=== PATIENT | female | born 1980 | race Caucasian/White ===

== ENCOUNTER 2019-01-08 15:39 | Outpatient (CLI) | payer OTHER ==
--- NOTE | 2019-01-08 17:00 | RAD ---
Right wrist 3 views: 01/08/2019 COMPARISON: None HISTORY: Injury, trauma, pain FINDINGS: No fracture or dislocation. No radiopaque foreign body or subcutaneous gas. If symptoms per sist, follow-up in 7-10 days with dedicated scaphoid views advised. IMPRESSION: No acute findings.
== END 2019-01-08 15:40 | disposition home or self-care (01) ==
LOC: SCSRAD 15:39
PROVIDERS: ATTEND Family Medicine
DX: S69.91XA Unspecified injury of right wrist, hand and finger(s), initial encounter (principal)

== ENCOUNTER 2019-11-09 14:37 | Outpatient (CLI) | payer OTHER ==
--- NOTE | 2019-11-09 15:58 | MRI ---
MRI RIGHT KNEE: 11/09/19 PROVIDED CLINICAL HISTORY: Right knee pain. FINDINGS: The anterior cruciate ligament, posterior cruciate ligament, medial collateral ligament and lateral c ollateral ligamentous complex demonstrate an intact MR appearance. There is mild fluid signal intensi ty deep to the distal iliotibial band. There is a conspicuously discoid morphology to the lateral meniscus. There is no definite grade 3 sig nal apparent. There is a globular focus of diminished T1 and T2 signal intensity immediately superfic ial to the body of the lateral meniscus measuring about 1.2 cm in craniocaudal dimension x about 6 mm in transverse dimension x about 1.6 cm in AP dimension. This is inseparable from the lateral margin of the body of the lateral meniscus. The medial meniscus appears normal. There is signal inhomogeneity involving the median ridge and lateral facet of the patella with low gr jerald fissuring. Articular cartilage appears otherwise preserved. There is a mild knee joint effusion. No focal concerning regional marrow or muscular signal abnormality apparent. There is lateral patellar tilt and lateral tracking of the patella noted. IMPRESSION: 1. Conspicuously discoid lateral meniscus. Globular structure at the lateral margin of the body of the lateral meniscus may reflect a complicated parameniscal cyst. This does not appear to represen t displaced meniscal tissue. 2. Patellar chondrosis. 3. Mild knee joint effusion. 4. Fluid signal intensity deep to the distal IT band, which can be seen in IT band friction synd ruy. POS: EMMY
== END 2019-11-09 14:38 | disposition home or self-care (01) ==
LOC: SCSMRI 14:37
PROVIDERS: ATTEND Orthopaedic Surgery
DX: S83.281A Other tear of lateral meniscus, current injury, right knee, initial encounter (principal); M25.461 Effusion, right knee; M22.41 Chondromalacia patellae, right knee; R93.7 Abnormal findings on diagnostic imaging of other parts of musculoskeletal system; M23.300 Other meniscus derangements, unspecified lateral meniscus, right knee

== ENCOUNTER 2019-11-18 05:39 | Outpatient (CLI) | payer OTHER ==
[2019-11-18 16:34] LABS: #Eosinphils 0.1 thou/uL (0.0-0.7); #Lymphocytes 1.9 thou/uL (1.20-3.40); #Monocytes 0.3 thou/uL (0.11-0.59); %Basophils 0.2 % (0.0-1.0); %Eosinophils 0.8 % (0.0-10.0); %Lymphocytes 23.3 % (21.0-51.0); %Monocytes 3.8 % (0.0-10.0); Hemoglobin 13.1 g/dL (12.0-16.0); Mean Corpuscular HGB CONC 33.9 g/dL (32.0-36.0); Mean Corpuscular Hemoglobin 32.4 pg (27.0-31.0); Mean Corpuscular Volume 95.6 fL (78.0-98.0); Mean Platelet Volume 7.8 fL (7.4-10.4); Platelet Count 265 thou/uL (130-400); RBC Distribution Width 10.5 % (11.5-14.5); Red Blood Cell (RBC) Count 4.04 mill/uL (4.20-5.40); White Blood Cell (WBC) Count 8.3 thou/uL (4.8-10.8)
[2019-11-19 14:41] LABS: SARS-CoV-2 MS2 Positive; SARS-CoV-2 N Gene Negative; SARS-CoV-2 S Gene Negative; SARS-CoV-2 by NAA Not Detected (NotDetected); SARS-CoV-2 orf1ab Negative
== END 2019-11-18 05:40 | disposition home or self-care (01) ==
LOC: LABBT 05:39
PROVIDERS: ATTEND Orthopaedic Surgery
DX: Z01.812 Encounter for preprocedural laboratory examination (principal); Z11.59 Encounter for screening for other viral diseases; S83.281A Other tear of lateral meniscus, current injury, right knee, initial encounter
CPT/HCPCS: 84702; 85025; 87635; U0003

== ENCOUNTER 2019-11-23 06:58 | Day surgery (SDC) | payer OTHER ==
[2019-11-22 11:18] VITALS: BMI 26.6
[2019-11-23] MEDS ORDERED: Midazolam HCl 2 mg/2 ml Vial ONE ×2 (07:59→08:31)
[2019-11-23] MEDS ORDERED: Fentanyl 100 MCG/2 ML VIAL ONE ×2 (07:59→08:31)
[2019-11-23] MEDS ORDERED: Ondansetron PF 4 MG/2 ML Vial ONE (10:21)
[2019-11-23] MEDS ORDERED: Dexamethasone 20 MG/5 ML VIAL ONE (10:21)
[2019-11-23] MEDS ORDERED: Bupivacaine PF 0.5% 30 ML VIAL ONE (10:21)
[2019-11-23] MEDS ORDERED: PROPOFOL 200 MG/20 ML VIAL ONE (10:21)
[2019-11-23] MEDS ORDERED: PHENYLEPHRINE-NS 100 MCG/ML 10 ML SYRINGE ONE (10:21)
[2019-11-23] MEDS ORDERED: Lidocaine 2% w/Epinephrine 1:200K 20 ML VIAL ONE (10:21)
[2019-11-23] MEDS ORDERED: Morphine 4 MG/ML VIAL ONE (11:14)
[2019-11-23] MEDS ORDERED: HYDROcodone/Acetaminophen 5/325 mg Tablet ONE (12:31)
--- NOTE | 2019-11-24 09:14 | OP ---
DATE OF PROCEDURE: 11/23/2019 PREOPERATIVE DIAGNOSIS: Right knee lateral meniscus tear with parameniscal cyst. POSTOPERATIVE DIAGNOSES: 1. Right knee with some areas of grade 2 chondral wear approaching grade 3 in the medial femoral condyle with associated deposits of crystals in the medial compartment noted on the medial femoral condyle cartilage as well as medial meniscus itself. 2. 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 This cyst was noted to contain a toothpaste-like crystalline material inside. PROCEDURES PERFORMED: 1. Right knee arthroscopy with debridement and shaving. 2. Open removal of parameniscal cyst. ANESTHESIA: The patient did have a general anesthetic. She did have local knee block. DISPOSITION: She did go to recovery room in stable condition. COMPLICATIONS: There were no complications. SPECIMEN: We did send some fluid to the lab for evaluation for crystals. We also sent the cyst for further pathologic evaluation. INDICATIONS: This 39-year-old active female comes in complaining of pain and catching about a week and a half ago. She has no known history and was found on MRI scan to have a discoid meniscus that was felt to be torn. It does appear that the whole meniscus has some intrasubstance degeneration and a parameniscal cyst. At this time, she opted to have surgery. DESCRIPTION OF PROCEDURE: After all appropriate consent forms were explained and signed, she was taken back to the operating room and at this time was given general anesthetic. Once the level of anesthesia was appropriate, tourniquet was placed on the right thigh. Leg was placed in arthroscopic leg wagner. The limb was then prepped and draped in standard surgical fashion. The limb was exsanguinated and tourniquet was taken to 300 mmHg. Inferolateral portal was established and scope was placed into the knee joint. A needle localization technique was then used to make a medial working portal. Diagnostic arthroscopy commenced in the notch. The ACL and PCL were probed, found to be intact. The medial femoral condyle was found to have some small area of grade 2 approaching grade 3 cartilage loss with some unstable chondral flaps, but what was more interesting was that there was some crystals embedded in these areas. The tibial plateau was in good condition. The medial meniscus was found to be intact; however, the meniscus itself was found to have crystals in the substance of the meniscal tissue. The lateral compartment was then evaluated. The femoral cartilage was in good condition. The entire tibial plateau was covered by discoid lateral meniscus. We probed this thoroughly throughout and we were unable to find a tear on either the superior or inferior surface of the meniscus itself. Therefore, we did not do anything to the meniscus knowing that the entire intrasubstance of this was degenerative for fear that the entire meniscus would just fall apart if we started to try and saucerize this discoid meniscus. Patellofemoral joint was found to have some minor wear. No loose bodies were noted in the gutters. At this time, we removed the scope and drained the knee. We made a small lateral incision midway between the fibular head and Gerdy's tubercle and went down through skin only. Bovie was used to coagulate any brisk venous bleeding. We then were able to palpate a small cystic structure lying underneath the IT band and centered our IT band incision directly over top of this. At this time, we then used knee flexion-extension as well as [employer] retractors to gain access to the cystic structure. This was rubbery in nature and had a yellow discoloration and as we tried to dissect it out, we did get into the cyst and it was noted to have a liquidy, toothpaste type consistency, which would go along with crystal deposition. The cyst was removed in its entirety and sent to pathology for formal evaluation. We did have a needle available and took some of the fluid with some of the crystals and sent that separately for crystal evaluation. We then thoroughly irrigated and dried the knee. In removing the cyst, we did remove some of the coronary ligaments and at this time, we did put the camera back into the knee joint through the portal, turned the flow on and noted that flow egressed from this area. Therefore, we would have to reconstruct the coronary ligaments. We then went ahead and placed two 3.5 mm Titanium anchors in the subchondral bone being careful not to penetrate into the articular surface. The single stitch was then used to grab hold of our lateral edge of our meniscus and tacked this down to the tibia. At this time, we then again irrigated and dried. We closed our IT band followed by some 2-0 Vicryl and stitches to close our skin. Portals were closed with simple nylon stitch as well. Bulky sterile dressing was applied as well as a knee immobilizer. The patient was then awakened, taken to the recovery room in stable condition. All counts were correct at the end of the case. She did receive preoperative IV antibiotics. Job ID: [id number]
== END 2019-11-23 12:50 | disposition home or self-care (01) ==
LOC: SDC 06:58
PROVIDERS: ATTEND Orthopaedic Surgery
PROC: 0SBC0ZZ Excision of Right Knee Joint, Open Approach (ICD-10-PCS; principal; 2019-11-23)
PROC: 0SJC4ZZ Inspection of Right Knee Joint, Percutaneous Endoscopic Approach (ICD-10-PCS; principal; 2019-11-23)
DX: M25.861 Other specified joint disorders, right knee (principal); M23.300 Other meniscus derangements, unspecified lateral meniscus, right knee; E06.3 Autoimmune thyroiditis; Z79.2 Long term (current) use of antibiotics
CPT/HCPCS: 88304; 89060; J0690; J1100; J2250; J2270; J2405; J2704; J3010; S0020